=== PATIENT | female | born 1960 | race Caucasian/White ===

== ENCOUNTER 2018-01-16 12:30 | Inpatient (IN) | payer OTHER ==
[2018-01-16] MEDS ORDERED: ARIMIDEX 1 MG (14:15)
[2018-01-16] MEDS ORDERED: RESTORIL15 MG (14:16)
[2018-01-16] MEDS ORDERED: HYDROCHLOROTHIA25 MG (14:16)
[2018-01-16] MEDS ORDERED: LIPITOR40 MG (14:16)
== END 2018-01-24 10:26 | disposition home or self-care (01) | DRG 331 ==
LOC: SURH 01-21 05:45 → O/R 01-21 05:45 → SURG 01-21 07:00 → MEDI 01-21 10:31 → SURH 01-21 10:31 → SURG 01-21 12:30 → SURH 01-21 14:50
PROVIDERS: Colon & Rectal Surgery
PROC: 0DJD8ZZ Inspection of Lower Intestinal Tract, Via Natural or Artificial Opening Endoscopic (ICD-10-PCS; 2018-01-21)
PROC: 4A033R1 Measurement of Arterial Saturation, Peripheral, Percutaneous Approach (ICD-10-PCS; 2018-01-21)
PROC: 4A12X4Z Monitoring of Cardiac Electrical Activity, External Approach (ICD-10-PCS; 2018-01-21)
PROC: 0DTE4ZZ Resection of Large Intestine, Percutaneous Endoscopic Approach (ICD-10-PCS; principal; 2018-01-21 07:00)
PROC: 3E0F7GC Introduction of Other Therapeutic Substance into Respiratory Tract, Via Natural or Artificial Opening (ICD-10-PCS; 2018-01-22)
DX: K57.32 Diverticulitis of large intestine without perforation or abscess without bleeding (principal); G47.33 Obstructive sleep apnea (adult) (pediatric); J45.20 Mild intermittent asthma, uncomplicated; I11.9 Hypertensive heart disease without heart failure; E78.4 Other hyperlipidemia; E87.6 Hypokalemia

== ENCOUNTER → 2019-02-13 | Day surgery (SDC) | payer OTHER ==
[~2019-02-13] MED LIST: ARIMIDEX 1 MG; HYDROCHLOROTHIA25 MG; LIPITOR40 MG; RESTORIL15 MG
== END | disposition home or self-care (01) ==
LOC: ADM 02-05 12:30 → AMB-ENDOS 12:00
DX: D13.1 Benign neoplasm of stomach (principal); K64.1 Second degree hemorrhoids

== ENCOUNTER 2019-10-15 14:57 | Emergency (ER) | payer OTHER ==
[~2019-10-15] VITALS: Ht 149.9 cm; Wt 74.8 kg
[2019-10-15] MEDS ORDERED: ZETIA10 MG (16:01)
[2019-10-15] MEDS ORDERED: METFORMIN HCL500 M3 (16:02)
[2019-10-15] MEDS ORDERED: SINGULAIR 5MG5 MG (16:02)
[2019-10-15] MEDS ORDERED: LEVSIN0.125 MG PO (20:16)
== END 2019-10-15 20:33 | disposition home or self-care (01) ==
LOC: ER 14:57
DX: K57.90 Diverticulosis of intestine, part unspecified, without perforation or abscess without bleeding (principal); N20.0 Calculus of kidney